=== PATIENT | female | born 1950 | race Caucasian/White ===

== ENCOUNTER 2016-11-28 09:10 | Outpatient (CLI) | payer OTHER ==
--- NOTE | 2016-11-29 14:01 | Mammography Report ---
DIGITAL SCREENING MAMMOGRAM: 11/28/2016 CLINICAL INDICATION: A 66-year-old, for screening. COMPARISON: 01/2015, 10/2009, 07/2008. TECHNIQUE: Routine CC and MLO projections were obtained of the breasts. FINDINGS: The breasts demonstrate scattered fibroglandular densities bilaterally. A few coarse, typi rosemary benign calcifications are present. In the right lower slightly inner posterior breast, there is a possible nodule. Further evaluation with spot compression views and possible ultrasound is recomme nded. No mammographically suspicious findings are appreciated in the left breast. IMPRESSION: INCOMPLETE EXAMINATION. RECOMMENDATION: ADDITIONAL EVALUATION OF THE RIGHT BREAST ABOVE. BIRADS CATEGORY 0-INCOMPLETE. STANDARD QUALIFYING STATEMENTS 1. This examination was reviewed with the aid of Computer-Aided Detection (CAD). 2. A negative or benign imaging report should not delay biopsy if clinically suspicious findings are present. Consider surgical consultation if warranted. More than 5% of cancers are not identified by i maging. 3. Dense breasts may obscure an underlying neoplasm. JOB #: [id number] EXT JOB #:[id number]
== END 2016-11-28 09:11 | disposition home or self-care (01) ==
LOC: DI.N 09:10
PROVIDERS: ATTEND Family Medicine
DX: Z12.31 Encounter for screening mammogram for malignant neoplasm of breast (principal); R92.8 Other abnormal and inconclusive findings on diagnostic imaging of breast
CPT/HCPCS: 77067

== ENCOUNTER 2016-12-30 10:42 | Outpatient (CLI) | payer OTHER ==
--- NOTE | 2016-12-30 13:07 | Mammography Report ---
DIGITAL DIAGNOSTIC RIGHT MAMMOGRAM: 12/30/2016 CLINICAL INDICATION: Possible nodule on screening. TECHNIQUE: Right true lateral and spot compression views. COMPARISON: 11/28/2016, 01/26/2015, 10/30/2009 FINDINGS: The right breast again demonstrates scattered fibroglandular densities. The nodule in jourdan romo, in the right lower inner posterior breast, persists on additional compression, measuring 6 mm. No associated calcifications are seen. Please also refer to right breast ultrasound of the same da y. IMPRESSION: BENIGN FINDINGS, WITH A CLUSTER OF SIMPLE CYSTS ON ULTRASOUND ACCOUNTING FOR THE MAMMOGR APHIC ABNORMALITY. RECOMMENDATION: Routine annual screening unless otherwise clinically indicated. BIRADS CATEGORY 2 - BENIGN FINDINGS. STANDARD QUALIFYING STATEMENTS 1. This examination was reviewed with the aid of Computer-Aided Detection (CAD). 2. A negative or benign imaging report should not delay biopsy if clinically suspicious findings are present. Consider surgical consultation if warranted. More than 5% of cancers are not identified by i maging. 3. Dense breasts may obscure an underlying neoplasm. JOB #: [id number] EXT JOB #:[id number]
--- NOTE | 2016-12-31 14:22 | Ultrasound Report ---
ULTRASOUND OF RIGHT BREAST: 12/30/2016 CLINICAL INDICATION: Abnormal mammogram. TECHNIQUE: Real-time scanning was performed with textile designs sales representative static images obtained. FINDINGS: Ultrasound of the inferior right breast was performed. At the 5:30-position, 5 cm from the nipple, there is a cluster of tiny cysts measuring in aggregate 6 x 4 x 3 mm. No sonographically suspicious findings are appreciated. IMPRESSION: CLUSTER OF SMALL CYSTS, ACCOUNTING FOR THE MAMMOGRAPHIC ABNORMALITY. RECOMMENDATION: ROUTINE ANNUAL SCREENING UNLESS OTHERWISE CLINICALLY INDICATED. BIRADS CATEGORY 2-BENIGN FINDINGS. MTDD
== END 2016-12-30 10:43 | disposition home or self-care (01) ==
LOC: DI 10:42
PROVIDERS: ATTEND Family Medicine
DX: N60.11 Diffuse cystic mastopathy of right breast (principal)
CPT/HCPCS: 76642